=== PATIENT | male | born 1995 | race Caucasian/White ===

== ENCOUNTER 2016-06-20 05:50 | Emergency (ER) | payer OTHER ==
[2016-06-20 06:26] LABS: BASOPHIL 1.3 % (0-2); EOSINOPHIL 1.8 % (0-5); HCT 47.1 % (42.0-52.0); HGB 15.4 g/dl (13.2-18.0); LYMPHOCYTE 29.2 % (15-48); MCH 26.6 pg (25.0-31.0); MCHC 32.7 g/dL (32.0-36.0); MCV 81.5 fL (78.0-100.0); MONOCYTE 7.4 % (0-12); MPV 11.7 fL (6.0-9.5); NEUTROPHIL 60.3 % (41-80); PLT 197 K/uL (150-400); RBC 5.78 M/uL (4.70-6.00); RDW 14.4 % (11.5-14.0); WBC 8.9 K/uL (4.0-10.5)
[2016-06-20 06:35] LABS: INR 1.24 (0.9-1.2); PROTHROMBIN TIME 15.2 SECONDS (11.7-14.0); PTT 25.8 SECONDS (23.2-31.4)
[2016-06-20 06:53] LABS: ALBUMIN 4.7 g/dL (3.5-5.0); BILIRUBIN - TOTAL 0.5 mg/dL (0.1-1.0); CREATININE 1.1 mg/dL (0.7-1.2); GLOBULIN (CALCULATION) 2.6 g/dL (2.2-4.2); POTASSIUM 3.2 mmol/L (3.5-5.1); TOTAL PROTEIN 7.3 g/dL (6.4-8.3)
== END 2016-06-20 10:01 | disposition home or self-care (01) ==
LOC: FER 05:50
PROVIDERS: Emergency Medicine
DX: S52.91XA Unspecified fracture of right forearm, initial encounter for closed fracture (principal); S31.141A Puncture wound of abdominal wall with foreign body, left upper quadrant without penetration into peritoneal cavity, initial encounter; V49.60XA Unspecified car occupant injured in collision with unspecified motor vehicles in traffic accident, initial encounter; W34.00XA Accidental discharge from unspecified firearms or gun, initial encounter; Y92.410 Unspecified street and highway as the place of occurrence of the external cause
CPT/HCPCS: 36415; 71010; 72170; 73090; 74000; 80053; 82550; 83690; 85025; 85610; 85730; 87040; G0480; J2405

== ENCOUNTER 2016-07-01 13:32 | Emergency (ER) | payer OTHER | END 2016-07-01 14:26 | disposition home or self-care (01) | LOC: FER 13:32 | DX: Z76.0 Encounter for issue of repeat prescription (principal); R10.9 Unspecified abdominal pain; Z90.5 Acquired absence of kidney; Z90.81 Acquired absence of spleen | CPT/HCPCS: 99282 ==

== ENCOUNTER 2021-09-20 19:41 | Emergency (ER) | payer SELFPAY | END 2021-09-20 21:50 | disposition home or self-care (01) | LOC: FER 19:41 | DX: S56.911A Strain of unspecified muscles, fascia and tendons at forearm level, right arm, initial encounter (principal) | CPT/HCPCS: 73090 ==